=== PATIENT | female | born 1950 | race Caucasian/White ===

== ENCOUNTER 2019-06-10 13:20 | Emergency (ER) | payer SELFPAY ==
[~2019-06-10] VITALS: Ht 157.5 cm; Wt 59.0 kg
[2019-06-10 13:53] LABS: BASOPHILS # (AUTO) 0.1 /CMM (0.0-0.2); BASOPHILS % (AUTO) 1.2 % (0.0-2.0); HEMATOCRIT 39 % (33-45); HEMOGLOBIN 12.8 g/dL (11.5-14.8); LYMPHOCYTES # (AUTO) 2.4 /CMM (0.8-4.8); LYMPHOCYTES % (AUTO) 32.8 % (20.0-44.0); MEAN CORPUSCULAR HGB CONC 33 g/dl (31.0-36.0); MEAN CORPUSCULAR VOLUME 87 fL (82-100); MONOCYTES # (AUTO) 0.3 /CMM (0.1-1.30); MONOCYTES % (AUTO) 4.3 % (2.0-12.0); NEUTROPHILS # (AUTO) 4.5 /CMM (1.8-8.9); NEUTROPHILS % (AUTO) 60.7 % (43.0-81.0); PLATELET COUNT (AUTO) 294 /CMM (150-450); RED BLOOD CELL COUNT(AUTO) 4.47 MIL/uL (4.0-5.2); WHITE BLOOD COUNT (AUTO) 7.3 K/uL (4.3-11.0)
[2019-06-10] MEDS ORDERED: KETOROLAC TROMETHAMINE INJ 30 MG/ML VIAL IV ONE (14:00)
[2019-06-10] MEDS ORDERED: IV NS 0.9% 1,000 ML BAG IV ONE (14:00)
[2019-06-10] MEDS ORDERED: ONDANSETRON HCL/PF 4 MG/2 ML VIAL IVP ONE (14:00)
[2019-06-10] MEDS ORDERED: KETOROLAC TROMETHAMINE INJ 30 MG/ML VIAL ONE (14:01)
[2019-06-10] MEDS ORDERED: ONDANSETRON HCL/PF 4 MG/2 ML VIAL ONE (14:01)
--- NOTE | 2019-06-10 14:01 | NUR ---
TOOK OVER PATIENT CARE. PT C/O LEFT FLANK PAIN AND HEMATURIA NOTED THIS MORNING. PT PLACED ON MONITOR AND PULSE OX.
[2019-06-10 14:02] LABS: CALCIUM, SERUM 9.5 mg/dL (8.5-10.1); CREATININE 0.6 mg/dL (0.6-1.3)
--- NOTE | 2019-06-10 14:05 | NUR ---
PT ALIYA TO CT
--- NOTE | 2019-06-10 14:06 | NUR ---
PT BROUGHT BACK FROM CT
[2019-06-10 14:07] LABS: ALBUMIN 4.1 g/dL (3.4-5.0); BILIRUBIN,DIRECT 0.1 mg/dL (0.0-0.2); BILIRUBIN,TOTAL 0.7 mg/dL (0.2-1.0); TOTAL PROTEIN, SERUM 8.1 g/dL (6.4-8.2)
--- NOTE | 2019-06-10 14:24 | NUR ---
URINE COLLECTED AND SENT TO LAB
[2019-06-10 14:34] LABS: APPEARANCE,URINE Clear (CLEAR); BILIRUBIN,URINE Negative (NEGATIVE); BLOOD, URINE Negative Ery/uL (NEGATIVE); COLOR,URINE Yellow (YELLOW); KETONES,URINE Negative (NEGATIVE); LEUKOCYTE ESTERASE ,URINE Trace (NEGATIVE); NITRITE, URINE Negative (NEGATIVE); PROTEIN,URINE Negative (NEGATIVE); UGLUCOSE Negative (NEGATIVE); UROBILINOGEN,URINE 0.2 EU/dL (0.2)
[2019-06-10 14:47] LABS: BACTERIA,URINE Few /HPF (None Seen); RBC,URINE NONE SEEN /HPF (0-2); SQUAMOUS EPITHELIAL CELL,UR Moderate /HPF (None Seen)
[2019-06-10 14:48] LABS: MUCUS,URINE Few /LPF (None Seen)
--- NOTE | 2019-06-10 15:22 | NUR ---
Patient discharged to home in stable condition. Written and verbal after care instructions given. Patient verbalizes understanding of instruction and RX. IV removed. Catheter intact and site benign. Pressure and 4x4 applied to site. No bleeding noted. PT ambulatory with a steady gait.
[2019-06-10 15:25] VITALS: BP 145/85
== END 2019-06-10 15:25 | disposition home or self-care (01) ==
LOC: ER 13:23
DX: N39.0 Urinary tract infection, site not specified (principal); M62.838 Other muscle spasm; Z87.442 Personal history of urinary calculi; Z90.710 Acquired absence of both cervix and uterus; Z98.890 Other specified postprocedural states
CPT/HCPCS: 36415; 74176; 80048; 80076; 81001; 83690; 85025; 87086; 96374; 96375; 99284; J1885; J2405; J7030; 81000-TC

== ENCOUNTER 2021-03-29 10:19 | Outpatient (CLI) | payer MEDICARE, OTHER ==
[2021-03-29 11:16] LABS: CALCIUM, SERUM 8.4 mg/dL (8.5-10.1); CREATININE 0.7 mg/dL (0.6-1.3); POTASSIUM 3.9 mmol/L (3.5-5.1)
[2021-03-29] MEDS ORDERED: IOHEXOL-350 100 ML VIAL IV ONE (11:24)
[2021-03-29] MEDS ORDERED: IV NS 0.9% 250 ML IV ONE (11:24)
[2021-03-29] MEDS ORDERED: CT SWABBABLE VALVE TRANS SET 1 EA INFUS.SET MC ONE (11:24)
--- NOTE | 2021-03-29 11:37 | NUR ---
PT GOT VERY ANXIOUS AND REFUSED EXAM , SHE WILL TALK WITH HER PMD FOR POSSIBLE SEDATIVE MEDS PRIOR TO EXAM.
== END 2021-03-29 23:59 | disposition home or self-care (01) ==
LOC: CT 10:19
PROVIDERS: ATTEND Internal Medicine Interventional Cardiology
DX: I10 Essential (primary) hypertension (principal)
CPT/HCPCS: 36415; 80048; J7050; Q9967

== ENCOUNTER 2025-03-05 11:11 | Emergency (ER) | payer MEDICARE, OTHER ==
[~2025-03-05] VITALS: Ht 167.6 cm; Wt 74.8 kg
[2025-03-05] MEDS: IV NS 0.9% 1,000 ML BAG IV ONE (12:07)
[2025-03-05 12:19] LABS: APPEARANCE,URINE CLOUDY (CLEAR); BLOOD, URINE NEGATIVE Ery/uL (NEGATIVE); LEUKOCYTE ESTERASE ,URINE 2+ (NEGATIVE); NITRITE, URINE NEGATIVE (NEGATIVE); UGLUCOSE NEGATIVE (NEGATIVE)
[2025-03-05 12:24] LABS: PLATELET COUNT (AUTO) 233 K/uL (150-450); RED BLOOD CELL COUNT(AUTO) 4.18 MIL/uL (4.0-5.2); RED CELL DISTRIBUTION WIDTH 13.3 % (11.5-15.0); WHITE BLOOD COUNT (AUTO) 6.7 K/uL (4.3-11.0)
[2025-03-05 12:28] LABS: ADD URINE CULTURE YES
[2025-03-05 12:44] LABS: ASPARTATE AMINOTRANSFERASE 26.0 U/L (15-37); CALCIUM, SERUM 9.2 mg/dL (8.5-10.1); CREATININE 0.8 mg/dL (0.6-1.3); SODIUM SERUM 140.0 mmol/L (136-145); TOTAL PROTEIN, SERUM 7.5 g/dL (6.4-8.2); UREA NITROGEN, BLOOD 14.0 mg/dL (7-18)
[2025-03-05] MEDS ORDERED: CEFTRIAXONE 1GM BAG (ER ONLY) 50 ML IV ONE (13:35)
[2025-03-05] MEDS: CEFTRIAXONE 1 G in IV D5W 50 ML IV ONE (13:38)
[2025-03-05] MEDS ORDERED: CEPH-570 PO (13:42)
[2025-03-05] MEDS ORDERED: IBUP-1955 PO (13:42)
[2025-03-05] MEDS ORDERED: KETOROLAC TROMETHAMINE 15 MG/ML VIAL ONE (13:58)
[2025-03-05] MEDS: KETOROLAC TROMETHAMINE 15 MG/ML VIAL IV ONE (14:08)
[2025-03-05 14:16] VITALS: BP 141/76; TEMP 98.3; O2SAT 100
== END 2025-03-05 14:17 | disposition home or self-care (01) ==
LOC: ER 11:29
DX: N39.0 Urinary tract infection, site not specified (principal); M54.50 Low back pain, unspecified; Z87.442 Personal history of urinary calculi; Z90.710 Acquired absence of both cervix and uterus; Z98.890 Other specified postprocedural states
CPT/HCPCS: 99285; 74176; 96365; 96361; 96375; 85025; 80048; 87086; 83690; 80076; 81001; 36415; J1885; J7030; J0696; 87186-TC